=== PATIENT | male | born 1970 | race Caucasian/White ===

== ENCOUNTER → 2016-09-10 | Outpatient (REF) | LOC: WSOH 08:03 | DX: Z02.4 Encounter for examination for driving license (principal) ==

== ENCOUNTER → 2020-09-05 | Outpatient (CLI) | payer BC | LOC: COL.RAD 07:03 | DX: R31.29 Other microscopic hematuria (principal); R91.1 Solitary pulmonary nodule; R93.5 Abnormal findings on diagnostic imaging of other abdominal regions, including retroperitoneum ==